=== PATIENT | female | born 1930 | race Two or more races ===

== ENCOUNTER 2017-07-10 15:46 | Outpatient (CLI) | payer OTHER | END 2017-07-10 15:56 | disposition home or self-care (01) | LOC: EKG 15:46 | DX: I10 Essential (primary) hypertension (principal) ==

== ENCOUNTER 2017-07-17 09:29 | Inpatient (IN) | payer OTHER | END 2017-07-22 14:32 | disposition E | DRG 330 | LOC: SURH 09:29 → O/R 11:00 → SURG 11:00 | PROVIDERS: Surgery | PROC: 07TC4ZZ Resection of Pelvis Lymphatic, Percutaneous Endoscopic Approach (ICD-10-PCS; 2017-07-17) | PROC: 0DTF4ZZ Resection of Right Large Intestine, Percutaneous Endoscopic Approach (ICD-10-PCS; principal; 2017-07-17 12:00) | PROC: 4A033R1 Measurement of Arterial Saturation, Peripheral, Percutaneous Approach (ICD-10-PCS; 2017-07-18) | PROC: 3E0F7GC Introduction of Other Therapeutic Substance into Respiratory Tract, Via Natural or Artificial Opening (ICD-10-PCS; 2017-07-19) | PROC: 5A12012 Performance of Cardiac Output, Single, Manual (ICD-10-PCS; 2017-07-22) | DX: C18.0 Malignant neoplasm of cecum (principal); J95.89 Other postprocedural complications and disorders of respiratory system, not elsewhere classified; J98.11 Atelectasis; R09.02 Hypoxemia ==